=== PATIENT | female | born 1995 | race Two or more races ===

== ENCOUNTER 2021-04-11 13:48 | Emergency (ER) | payer OTHER ==
[2021-04-11 14:14] VITALS: BP 128/63; PULSE 70; TEMP 98.2; BMI 35.9
[2021-04-11] MEDS ORDERED: IBUPROFEN 600 MG TABLET (FP) PO ONE (14:22)
[2021-04-11] MEDS ORDERED: IBUPROFEN 400 MG TABLET (FP) PO ONE (14:47)
== END 2021-04-11 15:15 | disposition home or self-care (01) ==
LOC: FER 13:48
DX: S01.511A Laceration without foreign body of lip, initial encounter (principal); Y04.0XXA Assault by unarmed brawl or fight, initial encounter; Y92.815 Train as the place of occurrence of the external cause
CPT/HCPCS: 99283-25